=== PATIENT | male | born 1995 | race Caucasian/White ===

== ENCOUNTER 2018-12-14 11:40 | Emergency (ER) | payer OTHER ==
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
[2018-12-14 13:00] VITALS: BP 144/86
== END 2018-12-14 12:59 | disposition home or self-care (01) ==
DX: S63.633A Sprain of interphalangeal joint of left middle finger, initial encounter (principal); Y04.2XXA Assault by strike against or bumped into by another person, initial encounter; Y99.0 Civilian activity done for income or pay
CPT/HCPCS: L3925